=== PATIENT | male | born 1990 | race Caucasian/White ===

== ENCOUNTER → 2016-08-20 | Outpatient (CLI) | payer BC ==
--- NOTE | 2016-08-20 10:20 | US ---
EXAMINATION TYPE: US venous doppler duplex UE RT DATE OF EXAM: 08/20/2016 COMPARISON: NONE CLINICAL HISTORY: M79.601 Pain In Limb. no trauma, unexplained rt arm pain and swelling x 1 day, no p revious dvt SIDE PERFORMED: right Right Arm: negative for DVT Results called to the office at the time of the exam. Normal compressibility and flow. No filling defects identified. IMPRESSION: No evidence for DVT right upper extremity.
== END ==
LOC: RADUSWWP 09:32
PROVIDERS: ATTEND Family Medicine
DX: M79.601 Pain in right arm (principal)